=== PATIENT | male | born 1975 ===

== ENCOUNTER 2023-04-06 08:35 | Inpatient (IN) | payer SELFPAY ==
[~2023-04-06] VITALS: Wt 59.0 kg
[2023-04-06] VITALS (14 sets, daily range): BP systolic 115–153; BP diastolic 65–86
[~2023-04-06 08:35] MED LIST: ONDA4ODT MM
[2023-04-06 08:57] LABS: BASOPHILS ABSOLUTE AUTO 0.04 K/mm3 (0.00-0.23); BASOPHILS PERCENT AUTO 0 % (0-2); EOSINOPHILS ABSOLUTE AUTO 0.08 K/mm3 (0.00-0.68); EOSINOPHILS PERCENT AUTO 1 % (0-6); Hematocrit 39.4 % (37.0-53.0); Hemoglobin 13.2 g/dL (13.5-17.5); IMMATURE GRAN ABSOLUTE AUTO 0.05 K/mm3 (0.00-0.10); IMMATURE GRAN PERCENT AUTO 0 % (0-1); LYMPHOCYTES ABSOLUTE AUTO 2.48 K/mm3 (0.84-5.20); LYMPHOCYTES PERCENT AUTO 17 % (21-46); MONOCYTES ABSOLUTE AUTO 0.74 K/mm3 (0.16-1.47); MONOCYTES PERCENT AUTO 5 % (4-13); Mean Corpuscular HGB 32.9 pg (26.0-34.0); Mean Corpuscular HGB Conc 33.5 g/dL (31.5-36.5); Mean Corpuscular Volume 98 fL (80-100); Mean Platelet Volume 9.1 fL (9.1-12.4); NEUTROPHILS ABSOLUTE AUTO 11.33 K/mm3 (1.96-9.15); NEUTROPHILS PERCENT AUTO 77 % (41-73); Platelet Count 324 K/mm3 (150-400); RDW Coefficient Variation 14.7 % (11.7-14.2); RDW Standard Deviation 53.8 fL (35.1-46.3); Red Blood Cell Count 4.01 M/mm3 (4.30-5.90); White Blood Cell Count 14.72 K/mm3 (4.00-11.30)
[2023-04-06 09:23] LABS: Alanine Aminotransfer (ALT/SGP 27 U/L (12-78); Albumin, Blood 3.9 g/dL (3.4-5.0); Albumin/Globulin Ratio 1.1 (0.8-1.8); Alk Phos 74 U/L (50-136); Anion Gap 5 mmol/L (6-16); Aspartate Aminotrans (AST/SGOT 26 U/L (12-37); Bilirubin, Total 0.3 mg/dL (0.1-1.0); Blood Urea Nitrogen 11 mg/dL (8-24); Bun/Creatinine Ratio 15.9 (12.0-20.0); CO2, Blood 25 mmol/L (21-32); Calcium, Blood 8.8 mg/dL (8.5-10.1); Chloride, Blood 109 mmol/L (98-108); Creatinine, Blood 0.69 mg/dL (0.60-1.20); Globulin, Blood 3.4 g/dL (2.2-4.0); Glomerular Filtration Rate 115 (60-); Glucose, Blood 162 mg/dL (70-99); Sodium, Blood 139 mmol/L (136-145); Total Protein, Blood 7.3 g/dL (6.4-8.2)
--- NOTE | 2023-04-06 11:50 | NUR ---
PATIENT CAME FROM PACU TODAY AT 1130. POD 0 EXPLORITORY LAP PATIENT IS A&OX4. VS ARE WNL AND IS ON RA. PATIENT REPORTS "DISCOMFORT" PAIN WHEN HE COUGHS BUT OTHERWISE HAS NO PAIN AT THIS TIME. PATIENT HAS AN ABD MIDLINE LARRY DRESSING THAT IS C/D/I AND COMPRESSED. ABD BINDER IS ALSO IN PLACE. PATIENT DENIES NUMBNESS AND TINGLING THROUGHOUT ALL EXTREMITIES. CAN MOVE ALL FINGERS AND TOES WHEN ASKED. HE IS LAYING IN BED WITH CALL LIGHT IN REACH. FAMILY IS AT BEDSIDE.
--- NOTE | 2023-04-06 15:24 | NUR ---
SHIFT SUMMARY: POD 0 EXPLORITORY LAP PATIENT IS A&OX4. VS ARE WNL AND IS ON RA. PATIENT IS ON A FENTANYL NEWS VIDEOGRAPHER PUMP THAT MANAGES HIS PAIN. PATIENT HAS BEEN TOLERATING HIS SMALL AMOUNTS OF ICE CHIPS AND SIPS OF WATER WITH NO NAUSEA OR VOMITING. PATIENT HAS A ABD MIDLINE LARRY THAT IS C/D/I AND IS COMPRESSED. PATIENT IS VOIDING IN THE URNAL INDEP. IN THE ROOM. PATIENTS SPOUSE IS AT BEDSIDE. PATIENT IS LAYING IN BED WITH CALL LIGHT AND NEWS VIDEOGRAPHER BUTTON WITHIN REACH.
[2023-04-07] VITALS: BP 140/83
[2023-04-07 04:43] VITALS: BP 149/80
--- NOTE | 2023-04-07 05:22 | NUR ---
SHIFT SUMMARY PT REMAINS A&O X4, ON RA, VSS. LARRY DRSG TO ABD C/D/I, ABD BINDER IN PLACE, PT EDU ABOUT DB&C, ENC TO SPLINT ABD WHILE COUGHING, PAIN MANAGED W/PO TYLENOL & FENTANYL BRASS CHASER, NS INFUSING @ 125/ML, TOLERATING CLEAR FLUIDS, VOIDING WNL, URINE IS CLEAR/YELLOW, PT CALLS FOR ASSISTANCE PRN, CALL LIGHT IN REACH, WCTM & REPORT TO DAY RN.
[2023-04-07 06:17] LABS: BASOPHILS ABSOLUTE AUTO 0.03 K/mm3 (0.00-0.23); BASOPHILS PERCENT AUTO 0 % (0-2); EOSINOPHILS ABSOLUTE AUTO 0.03 K/mm3 (0.00-0.68); EOSINOPHILS PERCENT AUTO 0 % (0-6); Hematocrit 35.6 % (37.0-53.0); Hemoglobin 11.9 g/dL (13.5-17.5); IMMATURE GRAN ABSOLUTE AUTO 0.05 K/mm3 (0.00-0.10); IMMATURE GRAN PERCENT AUTO 0 % (0-1); LYMPHOCYTES ABSOLUTE AUTO 2.75 K/mm3 (0.84-5.20); LYMPHOCYTES PERCENT AUTO 20 % (21-46); MONOCYTES ABSOLUTE AUTO 1.06 K/mm3 (0.16-1.47); MONOCYTES PERCENT AUTO 8 % (4-13); Mean Corpuscular HGB 32.6 pg (26.0-34.0); Mean Corpuscular HGB Conc 33.4 g/dL (31.5-36.5); Mean Corpuscular Volume 98 fL (80-100); Mean Platelet Volume 10.2 fL (9.1-12.4); NEUTROPHILS ABSOLUTE AUTO 9.89 K/mm3 (1.96-9.15); NEUTROPHILS PERCENT AUTO 72 % (41-73); Platelet Count 281 K/mm3 (150-400); RDW Coefficient Variation 14.9 % (11.7-14.2); RDW Standard Deviation 54.1 fL (35.1-46.3); Red Blood Cell Count 3.65 M/mm3 (4.30-5.90); White Blood Cell Count 13.81 K/mm3 (4.00-11.30)
[2023-04-07 06:35] LABS: Albumin, Blood 3.1 g/dL (3.4-5.0); Albumin/Globulin Ratio 0.9 (0.8-1.8); Bilirubin, Total 0.4 mg/dL (0.1-1.0); Bun/Creatinine Ratio 9.2 (12.0-20.0); Calcium, Blood 8.1 mg/dL (8.5-10.1); Creatinine, Blood 0.66 mg/dL (0.60-1.20); Globulin, Blood 3.4 g/dL (2.2-4.0); Potassium, Blood 3.7 mmol/L (3.5-5.5); Total Protein, Blood 6.5 g/dL (6.4-8.2)
[2023-04-07 07:19] VITALS: BP 133/74
--- NOTE | 2023-04-07 17:06 | NUR ---
SUMMARY NO ACUTE CHANGES T/O SHIFT. PT GETTING UP INDEPENDENTLY AND AMBULATING IN DA SILVA WITH FAMILY. PAIN TOLERABLE WITH FURNITURE FINISHER APPRENTICE AND TYLENOL PER ORDERS. TOLERATING CLEAR LIQUIDS. HAS NOT REPORTED PASSING FLATUS YET.
[2023-04-07 19:35] VITALS: BP 153/79
[2023-04-07 22:21] VITALS: BP 136/87
--- NOTE | 2023-04-08 05:30 | NUR ---
SHIFT SUMMARY NOC. PT A&O X4. PT INEPENDENT IN THE ROOM AND IS VOIDING URINE. PT'S PAIN CONTROLLED WITH SPEECH THERAPIST. MIDLINE ABDOMINAL LARRY DRESSING IS COMPRESSED AND INTACT WITH LIGHT DRIED DRAINAGE. PT DENIES NAUSEA OR VOMITING. PT REPORTED GOOD REST THROUGH THE NIGHT.
[2023-04-08 05:33] VITALS: BP 142/77
[2023-04-08 07:37] VITALS: BP 150/77
[2023-04-08 14:32] VITALS: BP 145/78
--- NOTE | 2023-04-08 14:34 | NUR ---
FENTANYAL HEATING REPAIR TECHNICIAN STOPPED AT 0900, PT EDUCATED AND GIVEN 1 NARCO. PAIN 2/10, REPORTS MOST PAIN WITH GETTING IN AND OUT OF BED. FENTANYAL VIAL AND TUBING REMOVED FROM ROOM AND WASTED WITH SERVICE DISPATCHERJACK.
--- NOTE | 2023-04-08 16:33 | NUR ---
SUMMARY: PT IS POD2 EX LAP. A/O, VSS. PT TOLERATING PO PAIN MANAGEMENT. ABLE TO TAKE SEVERAL WALKS IN THE DA SILVA, INDEPENDENT IN ROOM. REPORTS PASSING FLATUS AND ABLE TO TOLERATE SMALL AMT OF FULL LIQ. PT DOESN'T THINK HE'S QUITE READY FOR REG FOOD. MIDLINE LARRY IS WNL. PLAN IS FOR DC TOMORROW.
[2023-04-08 19:59] VITALS: BP 148/76
[2023-04-08 20:10] VITALS: BP 158/89
[2023-04-09 02:40] VITALS: BP 132/76
--- NOTE | 2023-04-09 06:39 | NUR ---
SHIFT SUMMARY NOC. PT POD #3 FOR EX LAP. PT A&O X4 AND INDEPENDENT IN THE ROOM. PT MEDICATED FOR PAIN X2 WITH GOOD RELIEF. LARRY DRESSING COMPRESSED, AND INTACT WITH LIGHT DRIED DRAINAGE. PT PASSING GAS AND DENIES NAUSEA, VOMITING, OR BLOATING.
[2023-04-09 07:39] VITALS: BP 124/82
[2023-04-09] MEDS ORDERED: TYLENOL325 MG PO (09:00)
[2023-04-09] MEDS ORDERED: HYDROCODONE-AC1 EA10 PO (09:01)
--- NOTE | 2023-04-09 11:00 | NUR ---
DISCHARGE NOTE MR WALTERS WAS DISCHARGED HOME FROM [facility] AT 0937. HE AMBULATED OUT WITH STEADY GAIT WITH HIS FAMILY. HE VERBALISED UNDERSTANDING OF WRITTEN AND VERBAL DISCHARGE INSTRUCTIONS. GIVEN WOUND DRESSING SUPPLIES. PIV X2 REMOVED INTACT. NICOTENE PATCH WAS REMOVED AND DISCPOSED OF AND PT DDECLINED THIS MORNINGS PATCH. UNABLE TO CHART EITHER OF THESE EVENTS UNDER MAR DUE TO COMPUTER PROBLEMS. CONFIRMED THAT SHE RECEIVED PAPER PRESCRIPTION FOR PAIN MEDICATIONS. PAIN CONTROLLED AT TIME OF DISCHARGE AND NO OTHER CONCERNS VOICED.
== END 2023-04-09 09:41 | disposition home or self-care (01) | DRG 581 ==
LOC: ER 08:35 → SURS 08:36
PROVIDERS: Emergency Medicine; Student in an Organized Health Care Education/Training Program; ADMIT Surgery
PROC: 0DJ64ZZ Inspection of Stomach, Percutaneous Endoscopic Approach (ICD-10-PCS; principal; 2023-04-06 09:30)
PROC: 0W3F0ZZ Control Bleeding in Abdominal Wall, Open Approach (ICD-10-PCS; 2023-04-06 09:30)
DX: S31.119A Laceration without foreign body of abdominal wall, unspecified quadrant without penetration into peritoneal cavity, initial encounter (principal); S30.1XXA Contusion of abdominal wall, initial encounter; F17.210 Nicotine dependence, cigarettes, uncomplicated; W26.0XXA Contact with knife, initial encounter; Z79.899 Other long term (current) drug therapy; Z88.0 Allergy status to penicillin; Z98.890 Other specified postprocedural states
CPT/HCPCS: 36415; 74177; 80053; 83690; 85025; 86850; 86900; 86901; 90715; 99285-25; A9270; J0330; J0690; J1100; J1170; J1650; J2405; J2704; J3010; J7030; J7120; Q9967